=== PATIENT | female | born 1985 | race Caucasian/White ===

== ENCOUNTER 2017-12-13 19:40 | Emergency (ER) | payer OTHER ==
[~2017-12-13] VITALS: Ht 167.6 cm; Wt 79.0 kg
[2017-12-13 20:08] VITALS: BP 118/70
[2017-12-13 20:44] LABS: BASOPHILS # (AUTO) 0.08 x10^3/uL (0-0.1); BASOPHILS % (AUTO) 1 % (0-1); EOSINOPHILS % (AUTO) 1 % (1-7); LYMPHOCYTES # (AUTO) 2.78 x10^3/uL (1-3.4); LYMPHOCYTES % (AUTO) 29 % (22-44); MD NO; MEAN CORPUSCULAR HEMOGLOBIN 30.8 pg (27.0-34.8); MEAN CORPUSCULAR HGB CONC 34.3 g/dL (32.4-35.8); MEAN CORPUSCULAR VOLUME 89.7 fL (80-100); MEAN PLATELET VOLUME 9.4 fL (7.4-10.4); MONOCYTES # (AUTO) 0.53 x10^3/uL (0.2-0.8); MONOCYTES % (AUTO) 5 % (2-9); NEUTROPHILS # (AUTO) 6.18 x10^3/uL (1.8-6.8); NEUTROPHILS % (AUTO) 64 % (42-75); PLATELET COUNT 204 x10^3/uL (130-400); RED BLOOD COUNT 4.36 x10^6/uL (3.82-5.3); RED CELL DISTRIBUTION WIDTH 12.4 % (9.6-15.2)
[2017-12-13 20:53] LABS: ALBUMIN 3.4 g/dL (3.4-5.0); ANION GAP 7 mmol/L (5-15); CALCIUM 8.7 mg/dL (8.5-10.1); CHLORIDE 106 mmol/L (98-107); CREATININE 0.67 mg/dL (0.55-1.02)
[2017-12-13 21:27] LABS: MICROSCOPIC INDICATED
[2017-12-13 21:28] LABS: CULTURE INDICATED? YES
== END 2017-12-13 22:12 | disposition home or self-care (01) ==
LOC: ED 21:45
DX: O20.0 Threatened abortion (principal); O26.892 Other specified pregnancy related conditions, second trimester; Z3A.13 13 weeks gestation of pregnancy
CPT/HCPCS: 36415; 76801; 80048; 81001; 82040; 84702; 85025; 86901; 87086; 99285

== ENCOUNTER 2018-04-29 12:29 | Outpatient (CLI) | payer OTHER ==
[~2018-04-29] VITALS: Ht 167.6 cm; Wt 90.9 kg
[2018-04-29 12:44] VITALS: BP 99/55
== END 2018-04-29 18:40 | disposition home or self-care (01) ==
LOC: LDOP 12:29
PROVIDERS: ATTEND Obstetrics & Gynecology
DX: O26.893 Other specified pregnancy related conditions, third trimester (principal); Z3A.33 33 weeks gestation of pregnancy
CPT/HCPCS: 36415; 59025; 76815; 82731; 99211; G0463

== ENCOUNTER 2018-11-20 05:51 | Day surgery (SDC) | payer OTHER ==
[2018-11-17 13:00] VITALS: BP 109/74
[~2018-11-20] VITALS: Ht 167.6 cm; Wt 83.0 kg
[~2018-11-20 05:51] MED LIST: IBUP-1222 PO; METO10TA82 PO; OXYC-302 PO; WELLBUTRIN PO
[2018-11-20] MEDS ORDERED: LACTATED RINGERS 1,000 ML IV SCH (06:31)
[2018-11-20] MEDS ORDERED: FENTANYL PF 100 MCG/2ML ONE (07:02)
[2018-11-20] MEDS ORDERED: MIDAZOLAM 1 MG/ML, 2ML ONE (07:02)
[2018-11-20] MEDS ORDERED: BUPIVACAINE/PF 0.25% ONE (07:15)
[2018-11-20] MEDS ORDERED: EPINEPHRINE 1 MG/ML, 1ML ONE (07:15)
[2018-11-20] MEDS ORDERED: ROCURONIUM 10MG/ML,5ML ONE (07:21)
[2018-11-20] MEDS ORDERED: PROPOFOL 10 MG/ML, 20ML ONE (07:21)
[2018-11-20] MEDS ORDERED: ONDANSETRON 2MG/ML, 2ML ONE (07:21)
[2018-11-20] MEDS ORDERED: DEXAMETHASONE 4 MG/ML, 1ML ONE (07:21)
[2018-11-20] MEDS ORDERED: ACETAMINOPHEN 500 MG TABLET PO ONE (07:30)
[2018-11-20] MEDS ORDERED: FAMOTIDINE 20 MG TABLET PO ONE (07:30)
[2018-11-20] MEDS ORDERED: GABAPENTIN 300 MG CAPSULE PO ONE (07:30)
[2018-11-20] MEDS ORDERED: CEFAZOLIN 1,000 MG ONE (07:31)
[2018-11-20] MEDS ORDERED: GLYCOPYRROLATE 0.2MG/1ML, 5ML ONE (07:31)
[2018-11-20] MEDS ORDERED: NEOSTIGMINE 1 MG/ML, 10ML ONE (07:31)
[2018-11-20 07:46] LABS: HCG UR SG 1.024 (1.003-1.030)
[2018-11-20] MEDS ORDERED: OXYcodone 5 MG/5 ML ORAL.SOL UDC PO PRN (08:00)
[2018-11-20] MEDS ORDERED: MEPERIDINE/PF 25MG/0.5ML IVPush PRN (08:00)
[2018-11-20] MEDS ORDERED: LABETALOL 5MG/ML, 20ML IV PRN (08:00)
[2018-11-20] MEDS ORDERED: ONDANSETRON 2MG/ML, 2ML IV PRN (08:00)
[2018-11-20] MEDS ORDERED: PROMETHAZINE 25 MG/ML, 1ML IV PRN (08:00)
[2018-11-20] MEDS ORDERED: HYDROmorphone 2 MG/ML, 1ML IVPush PRN (08:00)
[2018-11-20] MEDS ORDERED: hydrALAzine 20 MG/ML, 1ML IV PRN (08:00)
[2018-11-20] MEDS ORDERED: FENTANYL PF 100 MCG/2ML IV PRN (08:00)
[2018-11-20] MEDS ORDERED: KETOROLAC 30 MG/1 ML IVPush ONE (08:30)
[2018-11-20] MEDS ORDERED: OXYcodone 5 MG/5 ML ORAL.SOL UDC ONE (08:32)
[2018-11-20] MEDS ORDERED: KETOROLAC 30 MG/1 ML ONE (08:32)
[2018-11-20] MEDS ORDERED: PROMETHAZINE 25 MG/ML, 1ML ONE (08:32)
== END 2018-11-20 10:20 | disposition home or self-care (01) ==
LOC: OUT 05:51
PROVIDERS: ATTEND Obstetrics & Gynecology
DX: Z30.2 Encounter for sterilization (principal); Z98.890 Other specified postprocedural states; Z88.8 Allergy status to other drugs, medicaments and biological substances
CPT/HCPCS: 58670; 81025; 88302; J0171; J0690; J1100; J1885; J2250; J2405; J2550; J2704; J2710; J3010; J3490; J7120